=== PATIENT | female | born 1970 | race Caucasian/White ===

== ENCOUNTER 2024-04-18 14:56 | Emergency (ER) | payer OTHER ==
[~2024-04-18] VITALS: Ht 167.6 cm; Wt 79.8 kg
[2024-04-18 15:15] VITALS: O2SAT 96
[2024-04-18] MEDS: TETRACAINE 0.5% OPHTH DROPS 4ML RIGHTEYE ONE (17:42)
[2024-04-18] MEDS: FLUORESCEIN SODIUM 1MG/STRIP RIGHTEYE ONE (17:42)
[2024-04-18] MEDS: BALANCED SALT IRRIG SOLN 15ML IR ONE (17:42)
[2024-04-18] MEDS: ACETAMINOPHEN 325MG TABLET PO STA (17:44)
[2024-04-18] MEDS ORDERED: CIPR2.5D17 RIGHTEYE (17:58)
[2024-04-18] MEDS ORDERED: NAPR-681 PO (17:58)
[2024-04-18 18:15] VITALS: BP 134/77; PULSE 95; RESP 16; TEMP 98.3
== END 2024-04-18 18:20 | disposition home or self-care (01) ==
LOC: ER 14:56 → EDBD 14:56 → ER 18:20
DX: H10.211 Acute toxic conjunctivitis, right eye (principal)
CPT/HCPCS: 99283